=== PATIENT | male | born 1940 | race Caucasian/White ===

== ENCOUNTER 2023-01-16 07:48 | Inpatient (IN) | payer MEDICARE ==
[2023-01-16] VITALS (7 sets, daily range): BP systolic 155–173; BP diastolic 70–99
[~2023-01-16] VITALS: Ht 182.9 cm; Wt 86.9 kg
[~2023-01-16 07:48] MED LIST: ACID REDUCER10 MG PO; ASPIR-LOW81 MG PO; ASPIRIN81 M1 PO; BENADRYL25 M2 PO; CARAFATE1 G1 PO; CELECOXIB200 MG PO; CENTRUM COMPLE1 EACH PO; GAVISCON500 MG PO; HYDROCODONE-AC1 EAC1 PO; LISINOPRIL5 MG PO; METHOTREXATE2.5 M1 PO; MULTIPLE VITAMI1 TA5 PO; NAPROSYN500 MG PO; OMEPRAZOLE40 MG PO; PHARMASSURE FO0.4 MG PO; PREDNISONE10 MG PO; PRILOSEC20 MG PO; Percocet 325 MG1 TAB PO; ULTRA B-100 CO1 EACH PO; VIBRAMYCIN100 MG PO; VITAMIN D1000 IU PO; ZITHROMAX250 MG PO
[2023-01-16 08:40] LABS: BASO % 0.4 % (0.0-1.0); EOS % 0.1 % (1.0-4.0); HEMATOCRIT 47.1 % (42.0-52.0); LYMPH # 0.4 10*3/uL (1.3-4.4); LYMPH % 5.2 % (27.0-41.0); MEAN CELL VOLUME 90.1 fl (80.0-94.0); MEAN CORPUSCULAR HGB 30.8 pg (27.0-31.0); MEAN CORPUSCULAR HGB CONC 34.2 g/dl (33.0-37.0); MEAN PLATELET VOLUME 10.6 fl (9.6-12.3); MONO # 0.3 10*3/uL (0.1-1.0); MONO % 4.5 % (3.0-9.0); NEUT # 6.3 10*3/uL (2.3-7.9); NEUT % 89.5 % (47.0-73.0); PLATELET COUNT AUTOMATED 174 10*3/uL (130-400); RED BLOOD COUNT 5.23 10*6/uL (4.50-5.90); RED CELL DISTRI WIDTH 12.9 % (0-14.5); WHITE BLOOD COUNT 7.1 10*3/uL (4.8-10.8)
[2023-01-16] MEDS ORDERED: HUMIRA40 MG/0.3 SQ (09:27)
[2023-01-16 09:39] LABS: ALKALINE PHOSPHATASE 105 U/L (46-116); BUN 14 mg/dl (9-23); CHLORIDE 105 mmol/L (98-107); POTASSIUM 4.2 mmol/L (3.4-5.1); SGPT/ALT 9 U/L (10-49); TOTAL PROTEIN 6.8 gm/dL (6.0-8.0)
[2023-01-16 09:41] LABS: LIPASE 886 U/L (12-53)
[2023-01-16 11:10] LABS: BILIRUBIN Negative (Negative); BLOOD Negative (Negative); CLARITY Clear (Clear); COLOR Yellow (Yellow); GLUCOSE Negative (Negative); KETONE Negative (Negative); LEUKO ESTERASE Negative (Negative); NITRITE Negative (Negative); UROBILINOGEN 0.2 E.U./dl (0.0-1.0)
[2023-01-16 11:27] LABS: BACTERIA 1+; MUCOUS 1+
[2023-01-16 11:29] LABS: EPITHELIAL CELLS 0-2
[2023-01-17] VITALS: BP 120/70
[2023-01-17 06:50] LABS: BASO % 0.2 % (0.0-1.0); EOS # 0.1 10*3/uL (0.0-0.4); EOS % 0.7 % (1.0-4.0); HEMATOCRIT 45.2 % (42.0-52.0); LYMPH # 0.6 10*3/uL (1.3-4.4); LYMPH % 6.1 % (27.0-41.0); MEAN CELL VOLUME 90.8 fl (80.0-94.0); MEAN CORPUSCULAR HGB 31.5 pg (27.0-31.0); MEAN CORPUSCULAR HGB CONC 34.7 g/dl (33.0-37.0); MEAN PLATELET VOLUME 10.3 fl (9.6-12.3); MONO # 0.8 10*3/uL (0.1-1.0); MONO % 8.4 % (3.0-9.0); NEUT # 8.1 10*3/uL (2.3-7.9); NEUT % 84.3 % (47.0-73.0); PLATELET COUNT AUTOMATED 148 10*3/uL (130-400); RED BLOOD COUNT 4.98 10*6/uL (4.50-5.90); WHITE BLOOD COUNT 9.6 10*3/uL (4.8-10.8)
[2023-01-17 07:08] LABS: ALKALINE PHOSPHATASE 98 U/L (46-116); BUN 8 mg/dl (9-23); CHLORIDE 104 mmol/L (98-107); CHOLESTEROL 126 mg/dL (<200); LDL CHOLESTEROL 75 mg/dL (9-159); POTASSIUM 4.1 mmol/L (3.4-5.1); THYROID STIM HORMONE (HS) 0.455 uIU/ml (0.550-4.780); TOTAL PROTEIN 6.6 gm/dL (6.0-8.0); TRIGLYCERIDES 51 mg/dl (<150)
[2023-01-17 07:09] LABS: SGPT/ALT < 7 U/L (10-49)
[2023-01-17 08:00] VITALS: BP 119/72; BP 124/76
[2023-01-17 08:47] LABS: VITAMIN D, 25-HYDROXY 37.2 ng/mL (30-100)
[2023-01-17 12:00] VITALS: BP 121/73
[2023-01-17 16:00] VITALS: BP 152/84
[2023-01-17 20:00] VITALS: BP 147/79
[2023-01-18] VITALS: BP 105/72
[2023-01-18 08:00] VITALS: BP 121/73
== END 2023-01-18 11:52 | disposition home or self-care (01) | DRG 440 ==
LOC: ED 07:48 → 5E 11:52 → EDHOLD 11:52 → 5E 12:20
PROVIDERS: Emergency Medicine; Student in an Organized Health Care Education/Training Program; ADMIT Internal Medicine; ATTEND Internal Medicine
DX: K85.90 Acute pancreatitis without necrosis or infection, unspecified (principal); K86.1 Other chronic pancreatitis; Z66 Do not resuscitate; M19.90 Unspecified osteoarthritis, unspecified site; E55.9 Vitamin D deficiency, unspecified; R73.9 Hyperglycemia, unspecified; I10 Essential (primary) hypertension; Z51.5 Encounter for palliative care; Z88.0 Allergy status to penicillin; Z79.899 Other long term (current) drug therapy; Z79.1 Long term (current) use of non-steroidal anti-inflammatories (NSAID)